=== PATIENT | female | born 1970 | race African-American/Black ===

== ENCOUNTER 2019-05-05 21:02 | Inpatient (IN) | payer MEDICAID, MEDICARE ==
[~2019-05-05] VITALS: Ht 162.6 cm; Wt 68.0 kg
[2019-05-05] MEDS ORDERED: VANCOMYCIN 1 G PREMIX 200 ML IV ONE (21:15)
[2019-05-05] MEDS ORDERED: PIPERACILLIN/TAZ 3.375G PREMIX 50 ML IV ONE (21:15)
[2019-05-05] MEDS ORDERED: SODIUM CHLORIDE 0.9% 1000ML BAG (SEPSIS BOLUS) IV ONE (21:15)
[2019-05-05] MEDS ORDERED: LEVOFLOXACIN 500MG PREMIX 100 ML IV ONE (21:15)
[2019-05-05] MEDS ORDERED: ACETAMINOPHEN 650MG SUPP PR ONE (21:30)
[2019-05-05 21:43] LABS: BASOPHILS % 0.2 % (0.0-2.0); EOSINOPHILS % 0.4 % (0.0-5.0); HEMATOCRIT. 40.3 % (36.0-48.0); HEMOGLOBIN. 13.3 g/dL (12.0-16.0); LYMPHOCYTES % 7.5 % (20.0-50.0); MEAN CORPUSCULAR HEMOGLOBIN 30.1 pg (28.0-32.0); MEAN CORPUSCULAR VOLUME 91.1 fL (81.0-99.0); MEAN PLATELET VOLUME 7.9 fl (7.4-10.4); MONOCYTES % 6.1 % (2.0-8.0); NEUTROPHILS % 85.8 % (40.0-76.0); PLATELET 372 x1000/uL (130-400); RED BLOOD CELL COUNT 4.43 mill/uL (4.2-5.4); RED CELL DISTRIBUTION WIDTH 16.6 % (11.6-14.6)
[2019-05-05 21:44] LABS: CHLORIDE 100 mEq/L (98-107); INR 1.1; PROTHROMBIN TIME 11.1 sec (9.6-11.0)
[2019-05-05 21:46] LABS: HCG SCREEN NEGATIVE
[2019-05-05 21:48] LABS: ETHANOL BLOOD < 10 mg/dL
[2019-05-05] MEDS ORDERED: VECURONIUM BROMIDE 10 MG/VIAL IV ONE ×2 (22:00→22:03)
[2019-05-05] MEDS ORDERED: PROPOFOL 10MG/ML 100ML 100 ML IV ONE (22:00)
[2019-05-05] MEDS ORDERED: ETOMIDATE 2MG/ML 10ML VIAL IV ONE ×2 (22:00→22:03)
[2019-05-05] MEDS ORDERED: SODIUM CHLORIDE 0.9% 10ML VIAL ONE (22:03)
[2019-05-05] MEDS ORDERED: CALCIUM CHLORIDE 1GM/10ML SYR IV ONE (22:30)
[2019-05-05] MEDS ORDERED: DEXTROSE 50% WATER 50ML SYRINGE IV ONE (22:30)
[2019-05-05] MEDS ORDERED: INSULIN REGULAR (HUMULIN R) 300UNITS/3ML IV ONE (22:30)
[2019-05-05] MEDS ORDERED: SODIUM BICARBONATE 8.4% 1 MEQ/ML 50ML SYR IV ONE (22:30)
[2019-05-05] MEDS ORDERED: NOREPINEPHRINE 4MG/250ML PMX 250 ML IV ONE (22:54)
[2019-05-05] MEDS ORDERED: NOREPINEPHRINE 4 MG in DEXT 5% WATER 246 ML IV ONE (23:00)
[2019-05-05] MEDS ORDERED: MIDAZOLAM HCL 2 MG/2 ML VIAL IV ONE (23:00)
[2019-05-05] MEDS ORDERED: MIDAZOLAM HCL 50 MG in DEXTROSE 5% WATER 40 ML IV ONE (23:00)
[2019-05-05 23:24] LABS: BG BASE EXCESS -1.2 mmol/L (-2.0-2.0); BG CARBOXYHEMOGLOBIN 0.5 % (0.5-1.5); BG DEOXYHEMOGLOBIN 0.3 % (0.0-5.0); BG FRACTION INSPIRED OXYGEN 100; BG HCO3 ACT 24.8 mmol/L (22.0-26.0); BG METHEMOGLOBIN 0.5 % (0.0-1.5); BG OXYGEN SATURATION 99.7 % (92.0-98.5); BG OXYHEMOGLOBIN 98.7 % (94.0-97.0); BG PCO2 46.7 mmHg (35.0-45.0); BG PH 7.343 (7.350-7.450); BG PO2 379.7 mmHg (75.0-100.0); BG SAMPLE SITE RIGHT BRACHIAL; BG TIDAL VOLUME(mL) 500 mL; BG TOTAL HEMOGLOBIN 12.8 g/dL (12.0-18.0); BG VENT MODE VENT - A/C; BG VENT RATE 14 set
[2019-05-05] MEDS ORDERED: MIDAZOLAM HCL 50 MG in DEXTROSE 5% WATER 40 ML IV PRN (23:30)
[2019-05-06] VITALS (50 sets, daily range): BP systolic 88–135; BP diastolic 55–91
[2019-05-06 00:22] LABS: CLARITY URINE TURBID (CLEAR); KETONES URINE TRACE (NEGATIVE); LEUKOCYTE ESTERASE URINE 3+ (NEGATIVE); NITRITE URINE POSITIVE (NEGATIVE); OCCULT BLOOD URINE 2+ (NEGATIVE); PROTEIN URINE 2+ (NEGATIVE); SPECIFIC GRAVITY URINE 1.015 (1.005-1.030)
[2019-05-06 00:25] LABS: COLOR URINE BLOODY (YELLOW)
[2019-05-06 00:51] LABS: *AMPHETAMINES SCREEN URINE NEGATIVE (NEGATIVE); *BARBITURATES SCREEN URINE NEGATIVE (NEGATIVE); *COCAINE SCREEN URINE NEGATIVE (NEGATIVE); METHADONE URINE SCREEN NEGATIVE (NEGATIVE)
[2019-05-06 00:52] LABS: CANNABINOID URINE SCREEN NEGATIVE (NEGATIVE); PHENCYCLIDINE URINE SCREEN NEGATIVE (NEGATIVE)
[2019-05-06 00:59] LABS: *BENZODIAZEPINES SCREEN URINE PRESUMTIVE POSITIVE (NEGATIVE); OPIATES URINE SCREEN PRESUMTIVE POSITIVE (NEGATIVE)
[2019-05-06] MEDS ORDERED: BUPIVACAINE HCL 0.5% (5MG/ML) 50ML ONE (07:08)
[2019-05-06] MEDS ORDERED: BACITRACIN 50,000 UNITS/VIAL ONE (07:08)
[2019-05-06] MEDS ORDERED: NORMAL SALINE 0.9% 10 ML SYR ONE (07:08)
[2019-05-06] MEDS ORDERED: DIATR MEGLU/DIATRIZOATE SOLN 30ML ONE ×2 (07:23→12:39)
[2019-05-06] MEDS: ACETAMINOPHEN 650MG SUPP PR PRN (07:28)
[2019-05-06] MEDS ORDERED: DIATR MEGLU/DIATRIZOATE SOLN 120ML ONE (08:47)
[2019-05-06] MEDS ORDERED: PIPERACILLIN/TAZOBACTAM 2.25 G in DEXTROSE 5% WATER 50 ML IV SCH (11:00)
[2019-05-06] MEDS ORDERED: DEXTROSE 50% WATER 50ML SYRINGE IV PRN (11:00)
[2019-05-06] MEDS ORDERED: IPRATROPIUM/ALBUTEROL 0.5-3(2.5)MG/3ML NEB HHN PRN (11:00)
[2019-05-06] MEDS ORDERED: NOREPINEPHRINE 4 MG in DEXT 5% WATER 246 ML IV SCH (11:30)
[2019-05-06] MEDS: FAMOTIDINE 20MG/2ML VIAL IV SCH (11:44)
[2019-05-06] MEDS: ENOXAPARIN 30MG/0.3ML SYR SUBCUT SCH (11:44)
[2019-05-06] MEDS: SODIUM CHLORIDE 0.9% 1,000 ML IV SCH ×2 (11:45→21:05)
[2019-05-06] MEDS ORDERED: NOREPINEPHRINE 4 MG in DEXT 5% WATER 246 ML IV PRN (12:00)
[2019-05-06] MEDS ORDERED: MIDAZOLAM HCL 100 MG in DEXT 5% WATER 80 ML IV PRN (12:00)
[2019-05-06] MEDS: PIPERACILLIN/TAZOBACTAM 2.25 G in DEXTROSE 5% WATER 50 ML IV SCH ×3 (12:18→23:18)
[2019-05-06 12:31] LABS: BG BASE EXCESS 1.5 mmol/L (-2.0-2.0); BG CARBOXYHEMOGLOBIN 0.9 % (0.5-1.5); BG DEOXYHEMOGLOBIN 1.2 % (0.0-5.0); BG FRACTION INSPIRED OXYGEN 40; BG HCO3 ACT 24.9 mmol/L (22.0-26.0); BG METHEMOGLOBIN 0.3 % (0.0-1.5); BG OXYGEN SATURATION 98.8 % (92.0-98.5); BG OXYHEMOGLOBIN 97.6 % (94.0-97.0); BG PCO2 35.2 mmHg (35.0-45.0); BG PH 7.467 (7.350-7.450); BG PO2 128.2 mmHg (75.0-100.0); BG SAMPLE SITE RIGHT BRACHIAL; BG TIDAL VOLUME(mL) 500 mL; BG TOTAL HEMOGLOBIN 12.2 g/dL (12.0-18.0); BG VENT MODE VENT - A/C; BG VENT RATE 14 set
[2019-05-06] MEDS: IPRATROPIUM/ALBUTEROL 0.5-3(2.5)MG/3ML NEB HHN SCH ×3 (12:36→20:39)
[2019-05-06] MEDS: BLOOD SUGAR DIAGNOSTIC STRIP TEST SCH ×3 (12:50→20:58)
[2019-05-06] MEDS: INSULIN LISPRO 100 UNITS/ML SUBCUT SCH ×3 (12:54→21:01)
[2019-05-06 13:09] LABS: BASOPHILS % 0.3 % (0.0-2.0); EOSINOPHILS % 0.3 % (0.0-5.0); HEMATOCRIT. 36.8 % (36.0-48.0); LYMPHOCYTES % 14.8 % (20.0-50.0); MEAN CORPUSCULAR VOLUME 91.9 fL (81.0-99.0); MEAN PLATELET VOLUME 7.9 fl (7.4-10.4); MONOCYTES % 6.3 % (2.0-8.0); NEUTROPHILS % 78.3 % (40.0-76.0); PLATELET 355 x1000/uL (130-400); RED CELL DISTRIBUTION WIDTH 16.6 % (11.6-14.6)
[2019-05-06 13:15] LABS: CHLORIDE 105 mEq/L (98-107)
[2019-05-06 13:23] LABS: HDL CHOLESTEROL 28 mg/dL (40-59); LDL CHOLESTEROL 48 mg/dL (5-100)
[2019-05-06 13:24] LABS: T4 FREE 1.11 ng/dL (0.76-1.46)
[2019-05-06] MEDS ORDERED: DILTIAZEM HCL 5MG/ML 5ML VIAL IV NR (14:45)
[2019-05-06] MEDS ORDERED: MORPHINE SULFATE 2 MG/ML CPJ (NOT FOR IM USE) IV NR (14:45)
[2019-05-06] MEDS ORDERED: VANCOMYCIN 1 G PREMIX 200 ML IV NR (15:00)
[2019-05-06 15:37] LABS: HEPATITIS B SURFACE ANTIGEN NEGATIVE
[2019-05-06 16:06] LABS: HEPATITIS A AB IGM NEGATIVE (NEGATIVE)
[2019-05-06] MEDS: PROPOFOL 10MG/ML 100ML 100 ML IV PRN ×2 (16:36→23:22)
[2019-05-07] VITALS (72 sets, daily range): BP systolic 91–140; BP diastolic 63–85
[2019-05-07] MEDS: VANCOMYCIN 750 MG PREMIX 150 ML IV SCH ×2 (03:11→14:21)
[2019-05-07] MEDS: PIPERACILLIN/TAZOBACTAM 2.25 G in DEXTROSE 5% WATER 50 ML IV SCH ×4 (05:38→23:07)
[2019-05-07] MEDS: SODIUM CHLORIDE 0.9% 1,000 ML IV SCH (06:13)
[2019-05-07] MEDS ORDERED: DIGOXIN 500MCG/2ML AMP IV ONE (07:00)
[2019-05-07] MEDS: BLOOD SUGAR DIAGNOSTIC STRIP TEST SCH ×4 (07:50→21:17)
[2019-05-07] MEDS: FAMOTIDINE 20MG/2ML VIAL IV SCH (08:02)
[2019-05-07] MEDS: PROPOFOL 10MG/ML 100ML 100 ML IV PRN (08:02)
[2019-05-07] MEDS: INSULIN LISPRO 100 UNITS/ML SUBCUT SCH ×4 (08:20→21:00)
[2019-05-07] MEDS: IPRATROPIUM/ALBUTEROL 0.5-3(2.5)MG/3ML NEB HHN SCH ×3 (08:44→20:26)
[2019-05-07 09:02] LABS: BG BASE EXCESS 1.5 mmol/L (-2.0-2.0); BG CARBOXYHEMOGLOBIN 0.3 % (0.5-1.5); BG FRACTION INSPIRED OXYGEN 40; BG HCO3 ACT 24.9 mmol/L (22.0-26.0); BG METHEMOGLOBIN 0.2 % (0.0-1.5); BG OXYHEMOGLOBIN 98.5 % (94.0-97.0); BG PCO2 35.1 mmHg (35.0-45.0); BG PEEP (cmH2O) 0 cmH2O; BG PH 7.469 (7.350-7.450); BG PO2 168.2 mmHg (75.0-100.0); BG SAMPLE SITE RIGHT RADIAL; BG TIDAL VOLUME(mL) 500 mL; BG VENT MODE VENT - A/C; BG VENT RATE 14 set
[2019-05-07 09:11] LABS: ABSOLUTE EOSINOPHILS 0.1 x10E3/uL (0.0-0.4); ABSOLUTE LYMPHOCYTES 3.3 x10E3/uL (0.7-3.1); ABSOLUTE MONOCYTES 1.3 x10E3/uL (0.1-0.9); ABSOLUTE NEUTROPHILS 13.4 x10E3/uL (1.4-7.0); BASOPHILS 0 % (Not Estab.); HEMATOCRIT 36.3 % (34.0-46.6); HEMOGLOBIN 11.6 g/dL (11.1-15.9); IMMATURE GRANULOCYTES 0 % (Not Estab.); LYMPHOCYTES 18 % (Not Estab.); MEAN CORPUSCULAR HEMOGLOBIN 29.2 pg (26.6-33.0); MEAN CORPUSCULAR VOLUME 91 fL (79-97); MONOCYTES 7 % (Not Estab.); NEUTROPHILS 75 % (Not Estab.); PLATELETS 379 x10E3/uL (150-450); RBC 3.97 x10E6/uL (3.77-5.28); RED CELL DISTRIBUTION WIDTH 16.4 % (12.3-15.4); WBC 18.1 x10E3/uL (3.4-10.8)
[2019-05-07 09:23] LABS: BASOPHILS % 0.4 % (0.0-2.0); EOSINOPHILS % 0.9 % (0.0-5.0); HEMOGLOBIN. 10.2 g/dL (12.0-16.0); LYMPHOCYTES % 13.3 % (20.0-50.0); MEAN CORPUSCULAR HEMOGLOBIN 30.3 pg (28.0-32.0); MEAN CORPUSCULAR VOLUME 92.5 fL (81.0-99.0); MEAN PLATELET VOLUME 8.2 fl (7.4-10.4); MONOCYTES % 7.3 % (2.0-8.0); NEUTROPHILS % 78.1 % (40.0-76.0); PLATELET 280 x1000/uL (130-400); RED BLOOD CELL COUNT 3.36 mill/uL (4.2-5.4); RED CELL DISTRIBUTION WIDTH 16.4 % (11.6-14.6)
[2019-05-07 09:27] LABS: CHLORIDE 110 mEq/L (98-107)
[2019-05-07] MEDS: ACETAMINOPHEN 650MG SUPP PR PRN (11:49)
[2019-05-07] MEDS: ENOXAPARIN 30MG/0.3ML SYR SUBCUT SCH (11:51)
[2019-05-07] MEDS ORDERED: DILTIAZEM HCL 5MG/ML 5ML VIAL IV NR (12:15)
[2019-05-07 13:06] LABS: % CD 3 POS. LYMPHOCYTES 74.4 % (57.5-86.2); % CD 4 POS. LYMPHOCYTES 8.5 % (30.8-58.5); % CD 8 POS. LYMPH 66.1 % (12.0-35.5); ABSOLUTE CD 3 2455 /uL (622-2402); ABSOLUTE CD 4 HELPER 281 /uL (359-1519); ABSOLUTE CD 8 SUPPRESSOR 2181 /uL (109-897); CD4/CD8 RATIO 0.13 (0.92-3.72)
[2019-05-07 14:10] LABS: BG BASE EXCESS 1.7 mmol/L (-2.0-2.0); BG CARBOXYHEMOGLOBIN 0.1 % (0.5-1.5); BG DEOXYHEMOGLOBIN 1.1 % (0.0-5.0); BG FRACTION INSPIRED OXYGEN 40; BG HCO3 ACT 24.4 mmol/L (22.0-26.0); BG METHEMOGLOBIN 0.3 % (0.0-1.5); BG OXYGEN SATURATION 98.9 % (92.0-98.5); BG OXYHEMOGLOBIN 98.5 % (94.0-97.0); BG PCO2 31.9 mmHg (35.0-45.0); BG PH 7.502 (7.350-7.450); BG PO2 136.5 mmHg (75.0-100.0); BG PRESSURE SUPPORT 10; BG SAMPLE SITE RIGHT BRACHIAL; BG TOTAL HEMOGLOBIN 10.8 g/dL (12.0-18.0); BG VENT MODE VENT - CPAP
[2019-05-07] MEDS: SODIUM CHLORIDE 0.45% 1,000 ML IV SCH (14:17)
[2019-05-07] MEDS ORDERED: LORAZEPAM 2MG/ML CPJ IV PRN (16:15)
[2019-05-07] MEDS: SULFAMETHOXAZOLE/TRIMETHOPRIM 800/160MG TABLET PO SCH (17:26)
[2019-05-07] MEDS: AZITHROMYCIN 500 MG TABLET PO SCH (17:26)
[2019-05-08] VITALS (46 sets, daily range): BP systolic 99–136; BP diastolic 60–85
[2019-05-08] MEDS: IPRATROPIUM/ALBUTEROL 0.5-3(2.5)MG/3ML NEB HHN SCH ×4 (02:04→21:10)
[2019-05-08] MEDS: VANCOMYCIN 750 MG PREMIX 150 ML IV SCH ×2 (02:10→15:41)
[2019-05-08] MEDS: SODIUM CHLORIDE 0.45% 1,000 ML IV SCH ×2 (02:10→16:13)
[2019-05-08] MEDS: PIPERACILLIN/TAZOBACTAM 2.25 G in DEXTROSE 5% WATER 50 ML IV SCH ×3 (05:54→19:04)
[2019-05-08 06:32] LABS: CHLORIDE 109 mEq/L (98-107)
[2019-05-08 06:36] LABS: BASOPHILS % 0.8 % (0.0-2.0); EOSINOPHILS % 1.1 % (0.0-5.0); HEMATOCRIT. 31.3 % (36.0-48.0); HEMOGLOBIN. 10.2 g/dL (12.0-16.0); LYMPHOCYTES % 19.5 % (20.0-50.0); MEAN CORPUSCULAR VOLUME 91.9 fL (81.0-99.0); MEAN PLATELET VOLUME 8.2 fl (7.4-10.4); MONOCYTES % 9.3 % (2.0-8.0); NEUTROPHILS % 69.3 % (40.0-76.0); PLATELET 279 x1000/uL (130-400); RED BLOOD CELL COUNT 3.41 mill/uL (4.2-5.4); RED CELL DISTRIBUTION WIDTH 15.9 % (11.6-14.6)
[2019-05-08 06:44] LABS: CREATINE KINASE 69 IU/L (26-192)
[2019-05-08 06:48] LABS: CREATINE KINASE MB FRACTION < 1.0 ng/mL (0.5-3.6)
[2019-05-08] MEDS: BLOOD SUGAR DIAGNOSTIC STRIP TEST SCH ×4 (07:50→20:48)
[2019-05-08] MEDS: INSULIN LISPRO 100 UNITS/ML SUBCUT SCH ×4 (08:20→20:48)
[2019-05-08] MEDS: FAMOTIDINE 20MG/2ML VIAL IV SCH (09:07)
[2019-05-08] MEDS: ENOXAPARIN 40MG/0.4ML SYR SUBCUT SCH (09:08)
[2019-05-08 09:29] LABS: BG BASE EXCESS -0.1 mmol/L (-2.0-2.0); BG CARBOXYHEMOGLOBIN 0.3 % (0.5-1.5); BG FRACTION INSPIRED OXYGEN 40; BG METHEMOGLOBIN 0.4 % (0.0-1.5); BG OXYHEMOGLOBIN 98.3 % (94.0-97.0); BG PCO2 31.8 mmHg (35.0-45.0); BG PH 7.477 (7.350-7.450); BG PO2 178.5 mmHg (75.0-100.0); BG SAMPLE SITE RIGHT RADIAL; BG TIDAL VOLUME(mL) 450 mL; BG TOTAL HEMOGLOBIN 10.2 g/dL (12.0-18.0); BG VENT MODE VENT - A/C; BG VENT RATE 14 set
[2019-05-08] MEDS ORDERED: POTASSIUM CHLORIDE INJ 40 MEQ in DEXT 5% WATER 250 ML IV NR (12:30)
[2019-05-08 13:46] LABS: BG CARBOXYHEMOGLOBIN 0.3 % (0.5-1.5); BG DEOXYHEMOGLOBIN 0.9 % (0.0-5.0); BG FRACTION INSPIRED OXYGEN 40; BG METHEMOGLOBIN 0.1 % (0.0-1.5); BG OXYGEN SATURATION 99.1 % (92.0-98.5); BG OXYHEMOGLOBIN 98.7 % (94.0-97.0); BG PCO2 30.3 mmHg (35.0-45.0); BG PH 7.478 (7.350-7.450); BG PO2 174.4 mmHg (75.0-100.0); BG PRESSURE SUPPORT 10; BG SAMPLE SITE RIGHT RADIAL; BG TOTAL HEMOGLOBIN 10.1 g/dL (12.0-18.0); BG VENT MODE VENT - CPAP
[2019-05-08] MEDS ORDERED: MAGNESIUM 1 G PREMIX 100 ML IV NR (15:00)
[2019-05-08] MEDS: AZITHROMYCIN 500 MG TABLET PO SCH (16:13)
[2019-05-08] MEDS: SULFAMETHOXAZOLE/TRIMETHOPRIM 800/160MG TABLET PO SCH (16:13)
[2019-05-08 21:25] LABS: BG BASE EXCESS -0.4 mmol/L (-2.0-2.0); BG CARBOXYHEMOGLOBIN 0.3 % (0.5-1.5); BG DEOXYHEMOGLOBIN 4.3 % (0.0-5.0); BG FRACTION INSPIRED OXYGEN 40; BG HCO3 ACT 23.3 mmol/L (22.0-26.0); BG METHEMOGLOBIN 0.2 % (0.0-1.5); BG OXYGEN SATURATION 95.7 % (92.0-98.5); BG OXYHEMOGLOBIN 95.2 % (94.0-97.0); BG PCO2 34.8 mmHg (35.0-45.0); BG PH 7.444 (7.350-7.450); BG SAMPLE SITE LEFT RADIAL; BG TOTAL HEMOGLOBIN 10.5 g/dL (12.0-18.0); BG VENT MODE MASK - AEROSOL
[2019-05-09] VITALS (36 sets, daily range): BP systolic 104–145; BP diastolic 54–98
[2019-05-09] MEDS: PIPERACILLIN/TAZOBACTAM 2.25 G in DEXTROSE 5% WATER 50 ML IV SCH ×4 (00:38→17:48)
[2019-05-09] MEDS: IPRATROPIUM/ALBUTEROL 0.5-3(2.5)MG/3ML NEB HHN SCH ×4 (01:56→20:38)
[2019-05-09] MEDS: MORPHINE SULFATE 2 MG/ML CPJ (NOT FOR IM USE) IV PRN ×2 (03:03→20:44)
[2019-05-09] MEDS: SODIUM CHLORIDE 0.45% 1,000 ML IV SCH (05:39)
[2019-05-09 05:58] LABS: CHLORIDE 107 mEq/L (98-107)
[2019-05-09] MEDS: BLOOD SUGAR DIAGNOSTIC STRIP TEST SCH ×4 (07:41→21:48)
[2019-05-09] MEDS: INSULIN LISPRO 100 UNITS/ML SUBCUT SCH ×4 (07:42→21:00)
[2019-05-09 08:00] LABS: BG BASE EXCESS -0.3 mmol/L (-2.0-2.0); BG CARBOXYHEMOGLOBIN 0.3 % (0.5-1.5); BG DEOXYHEMOGLOBIN 1.6 % (0.0-5.0); BG FRACTION INSPIRED OXYGEN 40; BG HCO3 ACT 23.6 mmol/L (22.0-26.0); BG METHEMOGLOBIN 0.3 % (0.0-1.5); BG OXYGEN SATURATION 98.4 % (92.0-98.5); BG OXYHEMOGLOBIN 97.8 % (94.0-97.0); BG PH 7.435 (7.350-7.450); BG PO2 138.2 mmHg (75.0-100.0); BG SAMPLE SITE RIGHT RADIAL; BG TOTAL HEMOGLOBIN 10.1 g/dL (12.0-18.0); BG VENT MODE MASK - AEROSOL
[2019-05-09] MEDS: FAMOTIDINE 20MG/2ML VIAL IV SCH (08:20)
[2019-05-09] MEDS: ENOXAPARIN 40MG/0.4ML SYR SUBCUT SCH (08:21)
[2019-05-09] MEDS ORDERED: LIDOCAINE HCL 1% 20ML VIAL (Pyxis) INJ ONE (08:31)
[2019-05-09] MEDS ORDERED: SODIUM BICARBONATE 4% (2.4MEQ) 5ML VIAL IV ONE (08:31)
[2019-05-09] MEDS ORDERED: HEPARIN 100 UNITS/1 ML VIAL IVF PRN (10:45)
[2019-05-09 12:41] LABS: HEMATOCRIT 29.7 % (36.0-48.0); HEMOGLOBIN 9.6 g/dL (12.0-16.0); MEAN CORPUSCULAR HEMOGLOBIN 29.9 pg (28.0-32.0); MEAN CORPUSCULAR VOLUME 92.6 fL (81.0-99.0); PLATELET 296 x1000/uL (130-400); RED BLOOD CELL COUNT 3.21 mill/uL (4.2-5.4); RED CELL DISTRIBUTION WIDTH 15.8 % (11.6-14.6)
[2019-05-09 12:49] LABS: CHLORIDE 112 mEq/L (98-107)
[2019-05-09] MEDS ORDERED: POTASSIUM CHLORIDE INJ 40 MEQ in DEXT 5% WATER 250 ML IV SCH (13:00)
[2019-05-09 17:04] LABS: BASOPHILS % 0.6 % (0.0-2.0); EOSINOPHILS % 1.1 % (0.0-5.0); HEMATOCRIT. 28.1 % (36.0-48.0); HEMOGLOBIN. 9.1 g/dL (12.0-16.0); LYMPHOCYTES % 23.2 % (20.0-50.0); MEAN CORPUSCULAR HEMOGLOBIN 30.1 pg (28.0-32.0); MEAN PLATELET VOLUME 8.1 fl (7.4-10.4); MONOCYTES % 8.5 % (2.0-8.0); NEUTROPHILS % 66.6 % (40.0-76.0); PLATELET 286 x1000/uL (130-400); RED BLOOD CELL COUNT 3.03 mill/uL (4.2-5.4); RED CELL DISTRIBUTION WIDTH 16.1 % (11.6-14.6)
[2019-05-09] MEDS: AZITHROMYCIN 500 MG TABLET PO SCH (17:48)
[2019-05-09] MEDS: SULFAMETHOXAZOLE/TRIMETHOPRIM 800/160MG TABLET PO SCH (17:48)
[2019-05-10] VITALS (28 sets, daily range): BP systolic 125–149; BP diastolic 74–95
[2019-05-10] MEDS: PIPERACILLIN/TAZOBACTAM 2.25 G in DEXTROSE 5% WATER 50 ML IV SCH ×2 (00:32→05:27)
[2019-05-10] MEDS: IPRATROPIUM/ALBUTEROL 0.5-3(2.5)MG/3ML NEB HHN SCH ×4 (01:26→21:09)
[2019-05-10 05:26] LABS: BASOPHILS % 0.5 % (0.0-2.0); EOSINOPHILS % 1.2 % (0.0-5.0); HEMATOCRIT. 29.9 % (36.0-48.0); HEMOGLOBIN. 9.9 g/dL (12.0-16.0); LYMPHOCYTES % 16.2 % (20.0-50.0); MEAN CORPUSCULAR HEMOGLOBIN 30.3 pg (28.0-32.0); MEAN CORPUSCULAR VOLUME 91.3 fL (81.0-99.0); MEAN PLATELET VOLUME 7.9 fl (7.4-10.4); MONOCYTES % 6.5 % (2.0-8.0); NEUTROPHILS % 75.6 % (40.0-76.0); PLATELET 294 x1000/uL (130-400); RED BLOOD CELL COUNT 3.28 mill/uL (4.2-5.4); RED CELL DISTRIBUTION WIDTH 15.7 % (11.6-14.6)
[2019-05-10 05:34] LABS: CHLORIDE 109 mEq/L (98-107)
[2019-05-10] MEDS: BLOOD SUGAR DIAGNOSTIC STRIP TEST SCH ×4 (07:42→21:22)
[2019-05-10 08:00] LABS: BG BASE EXCESS 0.2 mmol/L (-2.0-2.0); BG CARBOXYHEMOGLOBIN 0.3 % (0.5-1.5); BG DEOXYHEMOGLOBIN 20.6 % (0.0-5.0); BG FRACTION INSPIRED OXYGEN 36; BG HCO3 ACT 24.6 mmol/L (22.0-26.0); BG METHEMOGLOBIN 0.2 % (0.0-1.5); BG OXYGEN SATURATION 79.3 % (92.0-98.5); BG OXYHEMOGLOBIN 78.9 % (94.0-97.0); BG PCO2 39.2 mmHg (35.0-45.0); BG PH 7.416 (7.350-7.450); BG PO2 42.1 mmHg (75.0-100.0); BG SAMPLE SITE RIGHT RADIAL; BG TOTAL HEMOGLOBIN 10.6 g/dL (12.0-18.0); BG VENT MODE NASAL CANNULA
[2019-05-10] MEDS: INSULIN LISPRO 100 UNITS/ML SUBCUT SCH ×3 (08:20→21:00)
[2019-05-10 09:00] LABS: BG BASE EXCESS -0.5 mmol/L (-2.0-2.0); BG CARBOXYHEMOGLOBIN 0.3 % (0.5-1.5); BG DEOXYHEMOGLOBIN 2.7 % (0.0-5.0); BG FRACTION INSPIRED OXYGEN 32; BG HCO3 ACT 22.7 mmol/L (22.0-26.0); BG METHEMOGLOBIN 0.1 % (0.0-1.5); BG OXYGEN SATURATION 97.3 % (92.0-98.5); BG OXYHEMOGLOBIN 96.9 % (94.0-97.0); BG PCO2 32.3 mmHg (35.0-45.0); BG PH 7.465 (7.350-7.450); BG SAMPLE SITE RIGHT RADIAL; BG TOTAL HEMOGLOBIN 10.6 g/dL (12.0-18.0); BG VENT MODE NASAL CANNULA
[2019-05-10] MEDS: FAMOTIDINE 20MG/2ML VIAL IV SCH (10:26)
[2019-05-10] MEDS: ENOXAPARIN 40MG/0.4ML SYR SUBCUT SCH (10:27)
[2019-05-10] MEDS: PIPERACILLIN/TAZOBACTAM 3.375 G in DEXT 5% WATER 100 ML IV SCH ×2 (11:49→18:19)
[2019-05-10 13:10] LABS: HIV 1 ABS Positive (Negative); HIV 2 ABS Negative (Negative); HIV SCREEN 4G Reactive (Non Reactive); INTERPRETATION HIV-1 Positive (.)
[2019-05-10] MEDS: ASPIRIN 81MG TABLET PO SCH (16:05)
[2019-05-10] MEDS: SULFAMETHOXAZOLE/TRIMETHOPRIM 800/160MG TABLET PO SCH (18:19)
[2019-05-10] MEDS: ATORVASTATIN CALCIUM 40MG TABLET PO SCH (21:23)
[2019-05-11] VITALS (12 sets, daily range): BP systolic 123–143; BP diastolic 80–95
[2019-05-11] MEDS: IPRATROPIUM/ALBUTEROL 0.5-3(2.5)MG/3ML NEB HHN SCH ×4 (01:04→19:50)
[2019-05-11 06:02] LABS: CHLORIDE 107 mEq/L (98-107)
[2019-05-11 06:27] LABS: BASOPHILS % 0.5 % (0.0-2.0); EOSINOPHILS % 1.6 % (0.0-5.0); HEMATOCRIT. 27.9 % (36.0-48.0); HEMOGLOBIN. 9.3 g/dL (12.0-16.0); LYMPHOCYTES % 18.1 % (20.0-50.0); MEAN CORPUSCULAR HEMOGLOBIN 30.4 pg (28.0-32.0); MEAN CORPUSCULAR VOLUME 90.9 fL (81.0-99.0); MEAN PLATELET VOLUME 8.1 fl (7.4-10.4); MONOCYTES % 6.6 % (2.0-8.0); NEUTROPHILS % 73.2 % (40.0-76.0); PLATELET 300 x1000/uL (130-400); RED BLOOD CELL COUNT 3.06 mill/uL (4.2-5.4); RED CELL DISTRIBUTION WIDTH 16.1 % (11.6-14.6)
[2019-05-11] MEDS: BLOOD SUGAR DIAGNOSTIC STRIP TEST SCH ×4 (08:05→18:00)
[2019-05-11] MEDS: INSULIN LISPRO 100 UNITS/ML SUBCUT SCH ×4 (08:16→18:00)
[2019-05-11] MEDS: ENOXAPARIN 40MG/0.4ML SYR SUBCUT SCH (09:02)
[2019-05-11] MEDS: FAMOTIDINE 20MG/2ML VIAL IV SCH (09:02)
[2019-05-11] MEDS: ASPIRIN 81MG TABLET PO SCH (09:02)
[2019-05-11 12:44] LABS: BG BASE EXCESS 0.2 mmol/L (-2.0-2.0); BG CARBOXYHEMOGLOBIN 0.3 % (0.5-1.5); BG DEOXYHEMOGLOBIN 13.7 % (0.0-5.0); BG FRACTION INSPIRED OXYGEN 21; BG HCO3 ACT 23.5 mmol/L (22.0-26.0); BG METHEMOGLOBIN 0.3 % (0.0-1.5); BG OXYGEN SATURATION 86.2 % (92.0-98.5); BG OXYHEMOGLOBIN 85.7 % (94.0-97.0); BG PCO2 33.3 mmHg (35.0-45.0); BG PH 7.466 (7.350-7.450); BG PO2 48.6 mmHg (75.0-100.0); BG SAMPLE SITE RIGHT RADIAL; BG TOTAL HEMOGLOBIN 10.7 g/dL (12.0-18.0); BG VENT MODE ROOM AIR
[2019-05-11] MEDS: ACETYLCYSTEINE 100MG/ML 10% VIAL 4ML INH SCH (15:16)
[2019-05-11] MEDS ORDERED: MAGNESIUM 2 G PREMIX 50 ML IV NR (16:00)
[2019-05-11] MEDS: SULFAMETHOXAZOLE/TRIMETHOPRIM 800/160MG TABLET PO SCH (16:24)
[2019-05-11] MEDS: METHYLPREDNISOLONE SOD SUCC 40 MG/ML VIAL IV SCH (16:24)
[2019-05-11] MEDS: ATORVASTATIN CALCIUM 40MG TABLET PO SCH (21:14)
[2019-05-12] VITALS (11 sets, daily range): BP systolic 125–135; BP diastolic 83–91
[2019-05-12] MEDS: BLOOD SUGAR DIAGNOSTIC STRIP TEST SCH ×5 (00:25→23:16)
[2019-05-12] MEDS: METHYLPREDNISOLONE SOD SUCC 40 MG/ML VIAL IV SCH ×4 (00:25→23:22)
[2019-05-12] MEDS: INSULIN LISPRO 100 UNITS/ML SUBCUT SCH ×5 (00:26→23:20)
[2019-05-12] MEDS: ACETYLCYSTEINE 100MG/ML 10% VIAL 4ML INH SCH ×3 (02:19→20:12)
[2019-05-12] MEDS: IPRATROPIUM/ALBUTEROL 0.5-3(2.5)MG/3ML NEB HHN SCH ×4 (02:20→20:11)
[2019-05-12 07:12] LABS: BASOPHILS % 0.2 % (0.0-2.0); EOSINOPHILS % 0.1 % (0.0-5.0); HEMATOCRIT. 27.9 % (36.0-48.0); HEMOGLOBIN. 9.2 g/dL (12.0-16.0); LYMPHOCYTES % 19.4 % (20.0-50.0); MEAN CORPUSCULAR VOLUME 90.9 fL (81.0-99.0); MEAN PLATELET VOLUME 7.7 fl (7.4-10.4); MONOCYTES % 5.8 % (2.0-8.0); NEUTROPHILS % 74.5 % (40.0-76.0); PLATELET 312 x1000/uL (130-400); RED BLOOD CELL COUNT 3.07 mill/uL (4.2-5.4); RED CELL DISTRIBUTION WIDTH 16.6 % (11.6-14.6)
[2019-05-12 08:46] LABS: CHLORIDE 107 mEq/L (98-107)
[2019-05-12] MEDS: ENOXAPARIN 40MG/0.4ML SYR SUBCUT SCH (09:00)
[2019-05-12] MEDS: FAMOTIDINE 20MG/2ML VIAL IV SCH (09:00)
[2019-05-12] MEDS: ASPIRIN 81MG TABLET PO SCH (09:00)
[2019-05-12 09:08] LABS: BG BASE EXCESS 0.4 mmol/L (-2.0-2.0); BG CARBOXYHEMOGLOBIN 0.2 % (0.5-1.5); BG DEOXYHEMOGLOBIN 3.3 % (0.0-5.0); BG FRACTION INSPIRED OXYGEN 28; BG METHEMOGLOBIN 0.3 % (0.0-1.5); BG OXYGEN SATURATION 96.7 % (92.0-98.5); BG OXYHEMOGLOBIN 96.2 % (94.0-97.0); BG PCO2 34.9 mmHg (35.0-45.0); BG PH 7.456 (7.350-7.450); BG PO2 83.7 mmHg (75.0-100.0); BG SAMPLE SITE RIGHT RADIAL; BG TOTAL HEMOGLOBIN 10.5 g/dL (12.0-18.0); BG VENT MODE NASAL CANNULA
[2019-05-12] MEDS ORDERED: MORPHINE SULFATE 2 MG/ML CPJ (NOT FOR IM USE) IV PRN (10:30)
[2019-05-12] MEDS: MORPHINE SULFATE 2 MG/ML CPJ (NOT FOR IM USE) IV PRN ×2 (11:10→16:42)
[2019-05-12] MEDS ORDERED: IOHEXOL-350 100 ML BOTTLE ONE (12:53)
[2019-05-12] MEDS: SULFAMETHOXAZOLE/TRIMETHOPRIM 800/160MG TABLET PO SCH (16:42)
[2019-05-12] MEDS: ATORVASTATIN CALCIUM 40MG TABLET PO SCH (22:17)
[2019-05-13] VITALS (12 sets, daily range): BP systolic 120–145; BP diastolic 74–99
[2019-05-13] MEDS: IPRATROPIUM/ALBUTEROL 0.5-3(2.5)MG/3ML NEB HHN SCH ×5 (00:31→20:05)
[2019-05-13] MEDS: BLOOD SUGAR DIAGNOSTIC STRIP TEST SCH ×3 (05:20→17:16)
[2019-05-13] MEDS: INSULIN LISPRO 100 UNITS/ML SUBCUT SCH ×3 (05:25→17:29)
[2019-05-13 06:59] LABS: HEMATOCRIT 30.7 % (36.0-48.0); HEMOGLOBIN 10.1 g/dL (12.0-16.0); MEAN CORPUSCULAR HEMOGLOBIN 30.3 pg (28.0-32.0); MEAN CORPUSCULAR VOLUME 91.8 fL (81.0-99.0); PLATELET 376 x1000/uL (130-400); RED BLOOD CELL COUNT 3.35 mill/uL (4.2-5.4); RED CELL DISTRIBUTION WIDTH 16.7 % (11.6-14.6)
[2019-05-13] MEDS: ACETYLCYSTEINE 100MG/ML 10% VIAL 4ML INH SCH ×2 (07:37→16:32)
[2019-05-13 07:38] LABS: CHLORIDE 107 mEq/L (98-107)
[2019-05-13] MEDS: FAMOTIDINE 20MG/2ML VIAL IV SCH (08:37)
[2019-05-13] MEDS: ASPIRIN 81MG TABLET PO SCH (08:37)
[2019-05-13] MEDS: ENOXAPARIN 40MG/0.4ML SYR SUBCUT SCH (08:37)
[2019-05-13] MEDS: METHYLPREDNISOLONE SOD SUCC 40 MG/ML VIAL IV SCH (08:37)
[2019-05-13] MEDS: MORPHINE SULFATE 2 MG/ML CPJ (NOT FOR IM USE) IV PRN (09:59)
[2019-05-13] MEDS ORDERED: LORAZEPAM 0.5MG TABLET GT PRN (11:45)
[2019-05-13] MEDS: SULFAMETHOXAZOLE/TRIMETHOPRIM 800/160MG TABLET PO SCH (17:22)
[2019-05-13] MEDS: ATORVASTATIN CALCIUM 40MG TABLET PO SCH (21:02)
[2019-05-14] VITALS (11 sets, daily range): BP systolic 131–148; BP diastolic 82–95
[2019-05-14] MEDS: BLOOD SUGAR DIAGNOSTIC STRIP TEST SCH ×5 (00:15→23:22)
[2019-05-14] MEDS: IPRATROPIUM/ALBUTEROL 0.5-3(2.5)MG/3ML NEB HHN SCH ×4 (01:43→20:38)
[2019-05-14] MEDS: ACETYLCYSTEINE 100MG/ML 10% VIAL 4ML INH SCH ×3 (01:43→16:17)
[2019-05-14] MEDS: METHYLPREDNISOLONE SOD SUCC 40 MG/ML VIAL IV SCH ×2 (03:54→16:41)
[2019-05-14] MEDS: INSULIN LISPRO 100 UNITS/ML SUBCUT SCH ×5 (05:52→23:28)
[2019-05-14] MEDS: ENOXAPARIN 40MG/0.4ML SYR SUBCUT SCH (09:57)
[2019-05-14] MEDS: ASPIRIN 81MG TABLET PO SCH (09:57)
[2019-05-14] MEDS: FAMOTIDINE 20MG/2ML VIAL IV SCH (10:39)
[2019-05-14] MEDS: MORPHINE SULFATE 2 MG/ML CPJ (NOT FOR IM USE) IV PRN (11:18)
[2019-05-14] MEDS: SULFAMETHOXAZOLE/TRIMETHOPRIM 800/160MG TABLET PO SCH (16:41)
[2019-05-14] MEDS: ATORVASTATIN CALCIUM 40MG TABLET PO SCH (20:48)
[2019-05-15] VITALS (12 sets, daily range): BP systolic 122–145; BP diastolic 68–93
[2019-05-15] MEDS: IPRATROPIUM/ALBUTEROL 0.5-3(2.5)MG/3ML NEB HHN SCH ×4 (02:05→21:16)
[2019-05-15] MEDS: ACETYLCYSTEINE 100MG/ML 10% VIAL 4ML INH SCH ×4 (02:05→14:53)
[2019-05-15] MEDS: METHYLPREDNISOLONE SOD SUCC 40 MG/ML VIAL IV SCH ×2 (05:12→16:40)
[2019-05-15] MEDS: BLOOD SUGAR DIAGNOSTIC STRIP TEST SCH ×4 (05:14→23:13)
[2019-05-15] MEDS: INSULIN LISPRO 100 UNITS/ML SUBCUT SCH ×4 (05:15→23:20)
[2019-05-15] MEDS: ENOXAPARIN 40MG/0.4ML SYR SUBCUT SCH (09:26)
[2019-05-15] MEDS: SODIUM HYPOCHLORITE 0.125% 473ML SOLUTION TOP SCH (09:26)
[2019-05-15] MEDS: ASPIRIN 81MG TABLET PO SCH (09:26)
[2019-05-15] MEDS: FAMOTIDINE 20MG/2ML VIAL IV SCH (10:53)
[2019-05-15 11:28] LABS: BASOPHILS % 0.4 % (0.0-2.0); EOSINOPHILS % 0.6 % (0.0-5.0); HEMATOCRIT. 31.5 % (36.0-48.0); HEMOGLOBIN. 10.3 g/dL (12.0-16.0); LYMPHOCYTES % 17.3 % (20.0-50.0); MEAN CORPUSCULAR HEMOGLOBIN 29.7 pg (28.0-32.0); MEAN CORPUSCULAR VOLUME 90.8 fL (81.0-99.0); MEAN PLATELET VOLUME 6.9 fl (7.4-10.4); MONOCYTES % 5.6 % (2.0-8.0); NEUTROPHILS % 76.1 % (40.0-76.0); PLATELET 397 x1000/uL (130-400); RED BLOOD CELL COUNT 3.48 mill/uL (4.2-5.4); RED CELL DISTRIBUTION WIDTH 15.7 % (11.6-14.6)
[2019-05-15 11:41] LABS: CHLORIDE 106 mEq/L (98-107)
[2019-05-15] MEDS: MORPHINE SULFATE 2 MG/ML CPJ (NOT FOR IM USE) IV PRN ×2 (16:39→23:48)
[2019-05-15] MEDS: ATORVASTATIN CALCIUM 40MG TABLET PO SCH (21:23)
[2019-05-16] VITALS (10 sets, daily range): BP systolic 120–141; BP diastolic 78–94
[2019-05-16] MEDS: ACETYLCYSTEINE 100MG/ML 10% VIAL 4ML INH SCH ×3 (01:58→14:53)
[2019-05-16] MEDS: IPRATROPIUM/ALBUTEROL 0.5-3(2.5)MG/3ML NEB HHN SCH ×3 (01:58→20:52)
[2019-05-16] MEDS: METHYLPREDNISOLONE SOD SUCC 40 MG/ML VIAL IV SCH ×2 (04:09→12:21)
[2019-05-16] MEDS: MORPHINE SULFATE 2 MG/ML CPJ (NOT FOR IM USE) IV PRN ×2 (04:10→17:34)
[2019-05-16] MEDS: BLOOD SUGAR DIAGNOSTIC STRIP TEST SCH ×5 (05:30→21:00)
[2019-05-16] MEDS: INSULIN LISPRO 100 UNITS/ML SUBCUT SCH ×3 (05:32→17:12)
[2019-05-16] MEDS: ASPIRIN 81MG TABLET PO SCH (09:05)
[2019-05-16] MEDS: ENOXAPARIN 40MG/0.4ML SYR SUBCUT SCH (09:06)
[2019-05-16] MEDS: SODIUM HYPOCHLORITE 0.125% 473ML SOLUTION TOP SCH (09:06)
[2019-05-16] MEDS: FAMOTIDINE 20MG/2ML VIAL IV SCH (12:25)
[2019-05-16] MEDS ORDERED: DEXTROSE 50% WATER 50ML SYRINGE IV PRN (16:45)
[2019-05-16] MEDS: ATORVASTATIN CALCIUM 40MG TABLET PO SCH (20:55)
[2019-05-17] VITALS (9 sets, daily range): BP systolic 115–144; BP diastolic 76–102
[2019-05-17] MEDS: BLOOD SUGAR DIAGNOSTIC STRIP TEST SCH ×7 (00:14→18:25)
[2019-05-17] MEDS: INSULIN LISPRO 100 UNITS/ML SUBCUT SCH ×4 (00:30→18:27)
[2019-05-17] MEDS: IPRATROPIUM/ALBUTEROL 0.5-3(2.5)MG/3ML NEB HHN SCH ×3 (00:50→14:00)
[2019-05-17] MEDS: MORPHINE SULFATE 2 MG/ML CPJ (NOT FOR IM USE) IV PRN ×2 (02:50→09:30)
[2019-05-17] MEDS: FAMOTIDINE 20MG/2ML VIAL IV SCH (09:00)
[2019-05-17] MEDS: ASPIRIN 81MG TABLET PO SCH (09:29)
[2019-05-17] MEDS: ENOXAPARIN 40MG/0.4ML SYR SUBCUT SCH (09:29)
[2019-05-17] MEDS: METHYLPREDNISOLONE SOD SUCC 40 MG/ML VIAL IV SCH (09:29)
[2019-05-17] MEDS: SODIUM HYPOCHLORITE 0.125% 473ML SOLUTION TOP SCH (09:32)
== END 2019-05-17 20:56 | DRG 720 ==
LOC: ER 21:02 → CVICU 21:48 → EDBEDREQTM 22:13 → EDBEDREQ 22:13 → ENRESERV 05-06 10:05 → 5EST 05-10 18:08 → 6WST 05-17 14:05
PROVIDERS: ADMIT Internal Medicine; ATTEND Internal Medicine
PROC: 5A1945Z Respiratory Ventilation, 24-96 Consecutive Hours (ICD-10-PCS; principal; 2019-05-05)
PROC: 0BH17EZ Insertion of Endotracheal Airway into Trachea, Via Natural or Artificial Opening (ICD-10-PCS; 2019-05-05)
PROC: 06HY33Z Insertion of Infusion Device into Lower Vein, Percutaneous Approach (ICD-10-PCS; 2019-05-05)
PROC: B54CZZA Ultrasonography of Left Lower Extremity Veins, Guidance (ICD-10-PCS; 2019-05-05)
PROC: 02HV33Z Insertion of Infusion Device into Superior Vena Cava, Percutaneous Approach (ICD-10-PCS; 2019-05-09)
PROC: B548ZZA Ultrasonography of Superior Vena Cava, Guidance (ICD-10-PCS; 2019-05-09)
DX: A41.9 Sepsis, unspecified organism (principal); J96.01 Acute respiratory failure with hypoxia; J69.0 Pneumonitis due to inhalation of food and vomit; G93.41 Metabolic encephalopathy; E87.2 Acidosis; N17.9 Acute kidney failure, unspecified; L89.154 Pressure ulcer of sacral region, stage 4; R13.10 Dysphagia, unspecified; I31.3 Pericardial effusion (noninflammatory); N39.0 Urinary tract infection, site not specified; E87.5 Hyperkalemia; E86.0 Dehydration; D64.9 Anemia, unspecified; E11.65 Type 2 diabetes mellitus with hyperglycemia; F03.90 Unspecified dementia, unspecified severity, without behavioral disturbance, psychotic disturbance, mood disturbance, and anxiety; G31.9 Degenerative disease of nervous system, unspecified; I42.9 Cardiomyopathy, unspecified; J98.11 Atelectasis; K94.23 Gastrostomy malfunction; N21.0 Calculus in bladder; R47.02 Dysphasia; Y83.8 Other surgical procedures as the cause of abnormal reaction of the patient, or of later complication, without mention of misadventure at the time of the procedure; Y73.8 Miscellaneous gastroenterology and urology devices associated with adverse incidents, not elsewhere classified; Z78.1 Physical restraint status; Z86.73 Personal history of transient ischemic attack (TIA), and cerebral infarction without residual deficits; Y92.89 Other specified places as the place of occurrence of the external cause
CPT/HCPCS: 31500; 36415; 36600; 70551; 71045; 71275; 74018; 74176; 76937; 80048; 80061; 80202; 80305; 80320; 81003; 82140; 82270; 82375; 82550; 82553; 82805; 82962; 83036; 83605; 83735; 83880; 84145; 84439; 84443; 84478; 84484; 84703; 85027; 85379; 86359; 86360; 86701; 86702; 86705; 86709; 86803; 86850; 86900; 86920; 87015; 87045; 87070; 87340; 87389; 87427; 87449; 87493; 87804; 89055; 93005; 93306; 93880; 93970; 94002; 94003; 94640; 96365; 97162; 97166; 99291; C1725; J1160; J1650; J1815; J1956; J2250; J2270; J2543; J2704; J2920; J3370; J3475; J3480; J3490; J7030; J7040; J7060; J7608; J7620; Q9963; Q9967; G0480